=== PATIENT | male | born 1990 | race Caucasian/White ===

== ENCOUNTER 2019-03-01 11:03 | Emergency (ER) | payer SELFPAY ==
[2019-03-01 11:09] VITALS: BP 133/73
--- NOTE | 2019-03-01 11:18 | ER Document Report ---
HPI - HPI Time Seen by Provider: 03/01/19 11:07 Context: Patient is a 28-year-old female with a history of childhood asthma who presents to the emergency department with a chief complaint of left knee pain. Patient reports he was working on an AC unit in an attic when he was on a both of his knees. Patient reports he went to twist to reach an object when he felt a pop to the left knee. Patient reports this injury was 2 weeks ago. Patient reports the pain is intermittent and seems to be exacerbated when he fully extends, fully flexes the left leg or when he is up on his feet a lot. Patient reports he has been resting, using compression as well as ice. Patient denies numbness or tingling distal to the knee. Patient reports he has been using Tylenol and ibuprofen. Patient reports he is new to the area and is working on getting his insurance switched. Patient reports he did attempt to see other doctors in the area but cannot get an appointment for a few weeks. Patient reports he wants to get an x-ray to rule out fracture. Past Medical History - General Information source: Patient - Social History Smoking Status: Unknown if Ever Smoked Lives with: Spouse/Significant other Family History: None - Past Medical History Cardiac Medical History: Reports: None Pulmonary Medical History: Reports: Hx Asthma EENT Medical History: Reports: None Neurological Medical History: Reports: None Endocrine Medical History: Reports: None Renal/ Medical History: Reports: None Malignancy Medical History: Reports None GI Medical History: Reports: None Musculoskeletal Medical History: Reports None Skin Medical History: Reports None Psychiatric Medical History: Reports: None Traumatic Medical History: Reports: None Infectious Medical History: Reports: None Surgical Hx: Negative Vertical Provider Document - CONSTITUTIONAL Agree With Documented VS: Yes Exam Limitations: No Limitations General Appearance: No Apparent Distress - HEENT HEENT: Atraumatic, Normocephalic, PERRLA - NECK Neck: Normal Inspection - RESPIRATORY Respiratory: Breath Sounds Normal, No Respiratory Distress - CARDIOVASCULAR Cardiovascular: Regular Rate, Regular Rhythm - GI/ABDOMEN Gastrointestinal: Abdomen Soft, Abdomen Non-Tender, Normal Bowel Sounds - MUSCULOSKELETAL/EXTREMETIES Musculoskeletal/Extremeties: FROM, Non-Tender, No Edema Notes: Patient can fully flex and extend the left knee. There is no edema, ecchymosis or erythema noted to the left knee or extremity. Patient ambulate with a steady gait. There is no point tenderness noted to the knee. - NEURO Level of Consciousness: Awake, Alert - DERM Integumentary: Warm, Dry, No Rash Course - Re-evaluation Re-evalutation: 03/01/19 11:15 We will obtain an x-ray of the left knee as the patient has been having pain for 2 weeks. If the patient's x-ray is negative we will diagnosed with a sprain. Patient to follow-up with primary care or orthopedics if he continues to have pain. Continue to use rest, ice, compression elevation. 03/01/19 11:49 X-ray was negative. Patient made aware. Patient thinks that he exacerbated the left knee pain this past week as he was crawling underneath a house and is on his knees a lot. Did give patient a work note to rest over the next few days. Patient verbalized understanding. I did refer him to multiple orthopedics in the area. - Vital Signs Vital signs: Temp Pulse Resp BP Pulse Ox 97.7 F 73 16 133/73 H 99 03/01/19 11:07 03/01/19 11:07 03/01/19 11:07 03/01/19 11:07 03/01/19 11:07 - Diagnostic Test Radiology reviewed: Reports reviewed Radiology results interpreted by me: 03/01/19 11:49 Knee X-Ray 03/01/19 11:12 IMPRESSION: NEGATIVE STUDY OF THE LEFT KNEE. NO RADIOGRAPHIC EVIDENCE OF ACUTE INJURY. Discharge - Discharge Clinical Impression: Left knee sprain Qualifiers: Encounter type: initial encounter Involved ligament of knee: unspecified ligament Qualified Code(s): S83.92XA - Sprain of unspecified site of left knee, initial encounter Condition: Stable Disposition: HOME, SELF-CARE Additional Instructions: Today you are seen in the emergency department for left knee pain. Your x-ray was negative for any bony abnormality such as a fracture or dislocation. Your diagnosis today is a left knee sprain. Sprains are usually the result of stretching or tearing of the ligaments usually and from a twisting injury. This does take time to heal. Please continue to use rest, ice, elevation and compression. Please follow-up with your primary care physician or orthopedics if he continued to have discomfort. Please seek medical attention if you develop any new or worsening symptoms. SPRAIN: Your injury is a sprain. A sprain results from stretching or tearing of the ligaments, usually from a twisting injury. The ligaments will require time and protection in order to heal properly. Many sprains are quite disabling and should be taken seriously. The usual initial treatment of sprains is cold packs, elevation, and rest of the injured area. Your physician has assessed the seriousness of your ligament injury, and has outlined a treatment plan. Understand that this treatment may change, depending on how you progress. If a re-examination was recommended, it is important that you follow up as instructed. Call the doctor any time if there is severe pain, numbness, or loss of function in the injured area. YOGESH WRAP: A compression dressing (yogesh wrap) has been placed. This helps hold the area still. It limits swelling and internal bleeding. The wrap should be comfortably snug -- not tight. You should feel a sense of pressure, but not severe pain under the wrap. Unless the physician tells you otherwise, you can adjust the wrap for comfort. If the wrap causes symptoms suggesting it's too tight -- uncomfortable pressure, swelling or discoloration beyond the wrap, numbness, or severe pain -- you must loosen the wrap. If these symptoms don't resolve promptly, return for re-evaluation. SPRAINED KNEE: Your sprained knee results from a stretching or tearing of the ligaments which support the joint. This often results from a bending stress -- such as a twisting fall while skiing or a "clip" while playing football. The ligaments will require time and protection to heal adequately. A knee sprain can be quite serious, and should be taken seriously. The usual treatment is splinting of the knee, ice packs, and elevation. You shouldn't walk on the leg if weightbearing is painful. Unless the sprain is obviously a minor one, follow-up exam is very important. The degree of ligament damage often cannot be fully assessed at first due to muscle spasm and pain. Your treatment plan may change based on the physician's findings during your follow-up examination. Call the doctor at once if there is severe swelling, increasing pain, numbness, or other alarming symptoms. SUSPECTED INTERNAL KNEE INJURY: The examiner of your injured knee suspects an internal injury to the cartilage or internal ligaments. This must be further investigated by an clinical product specialist. The knee should be protected, ice packed, and elevated while awaiting your follow-up exam by the orthopedist. If there is severe swelling, severe pain, or any new symptoms while awaiting your exam, you should call the orthopedist. (If he/she is unavailable, call us or return for re-examination.) ICE & ELEVATION: Apply ice packs frequently against the painful area. Many different sche dules are recommended, such as "20 minutes on, 20 minutes off" or "one hour ice, two hours rest." If you need to work, you may need to go longer between ice treatments. You should plan to have the area ice packed AT LEAST one-fourth of the time. The ice should be applied over the wrap, tape, or splint, or over a layer of cloth -- not directly against the skin. Some ice bags have a built-in cloth and can be put directly on the skin. Your injured part should be elevated as much as possible over the next 48 hours. Try to keep the injury above the level of the heart. Avoid use of the injured area. Elevation and rest will decrease the swelling. USE OF SEFM-VHI-HUGOTVH IBUPROFEN: Ibuprofen (Advil, Nuprin, Medipren, Motrin IB) is a medication for fever and pain control. In addition, it has anti- inflammatory effects which may be beneficial, especially in the treatment of injuries. It's best to take ibuprofen with food. Persons with ulcer disease or allergy to aspirin should notify their physician of this before taking ibuprofen. Ibuprofen can be given every four to six hours, for a total of four doses daily. Age Pain or fever dose Antiinflammatory dose 6-8 yr 200 mg (1 tab) 200 mg (1 tab) 9-11 yr 200 mg (1 tab) 200-400 mg (1-2 tab) 11-14 yr 200-400 mg (1-2 tab) 400 mg (2 tab) 15-adult 400 mg (2 tab) 600 mg (3 tab) FOLLOW-UP CARE: If you have been referred to a physician for follow-up care, [facility] as you were instructed or within the next two days. If you experience worsening or a significant change in your symptoms, notify the physician immediately or return to the Emergency Department at any time for re-evaluation. Forms: Return to Work Referrals: AIDAN REBOLLEDO MD [ACTIVE PROVISIONAL STAFF] - Follow up as needed EAN GUTIERREZ MD [ACTIVE STAFF] - Follow up as needed MIKHAIL SHELL DO [ACTIVE STAFF] - Follow up as needed AMBER MOBLEY JR, DO [ACTIVE PROVISIONAL STAFF] - Follow up as needed
--- NOTE | 2019-03-01 11:48 | RADIOLOGY REPORT (SQ) ---
EXAM DESCRIPTION: KNEE LEFT 4 VIEW COMPLETED DATE/TIME: 03/01/2019 11:31 am REASON FOR STUDY: pain x 2 weeks, twisted left knee COMPARISON: None. NUMBER OF VIEWS: Four views. TECHNIQUE: AP, lateral, and both oblique radiographic images acquired of the left knee. LIMITATIONS: None. FINDINGS: MINERALIZATION: Normal. BONES: No acute fracture or dislocation. No worrisome bone lesions. JOINT: No effusion. SOFT TISSUES: No soft tissue swelling. No radio-opaque foreign body. OTHER: No other significant finding. IMPRESSION: NEGATIVE STUDY OF THE LEFT KNEE. NO RADIOGRAPHIC EVIDENCE OF ACUTE INJURY. TECHNICAL DOCUMENTATION: JOB ID: [id number] [employer]- All Rights Reserved Reading location - IP/workstation name: [email or web address]
== END 2019-03-01 12:01 | disposition home or self-care (01) ==
LOC: ER 11:03
DX: S83.92XA Sprain of unspecified site of left knee, initial encounter (principal); M25.562 Pain in left knee; X58.XXXA Exposure to other specified factors, initial encounter; J45.909 Unspecified asthma, uncomplicated
CPT/HCPCS: 99283